=== PATIENT | female | born 1970 | race Caucasian/White ===

== ENCOUNTER 2019-01-16 18:43 | Emergency (ER) | payer OTHER ==
[2019-01-16] MEDS ORDERED: Ondansetron INJ* 2 MG/ML VIAL IV ONE (19:21)
[2019-01-16] MEDS ORDERED: NS 0.9% 1000 ML** 1,000 ML IV ONE (19:21)
[2019-01-16] MEDS ORDERED: Ketorolac INJ* 30 MG/ML 1 ML VIAL IV PUSH ONE (19:22)
--- NOTE | 2019-01-16 19:41 | ED ---
GI/ HPI - HPI Summary HPI Summary: 48-year-old female presents with dysuria for the past 3 days. States she was started on Keflex 2 days ago. She states that she was diagnosed with UTI 2 weeks ago and was on a course of Macrobid. Seemed to get better but then she felt the symptoms returned. She admits to flank pain and she's been having low- grade fevers. She denies nausea and vomiting. She states has suprapubic tenderness. States she hasn't had kidney infection since high school. Has a history of a rotator cuff injury. Denies any chest pain or shortness breath. No palpitations. No vaginal discharge. No diarrhea or constipation. She admits to hematuria. No history of kidney stones. - History of Current Complaint Chief Complaint: EDUrogenitalProblems Time Seen by Provider: 01/16/19 19:09 Stated Complaint: KIDNEY INFECTION PER PT Pain Intensity: 8 - Allergy/Home Medications Allergies/Adverse Reactions: Allergies Allergy/AdvReac Type Severity Reaction Status Date / Time contrast dye Allergy Nausea Uncoded 01/16/19 18:51 Home Medications: Home Medications Lisdexamfetamine Dimesylate [Vyvanse] 50 mg PO DAILY 01/16/19 [History Confirmed 01/16/19] PMH/Surg Hx/FS Hx/Imm Hx Endocrine/Hematology History: Denies: Hx Anticoagulant Therapy Respiratory History: Denies: Hx Asthma Infectious Disease History: No Infectious Disease History: Reports: Traveled Outside the [place] in Last 30 Days - Family History Known Family History: Positive: Non-Contributory - Social History Alcohol Use: Occasionally Substance Use Type: Reports: None Smoking Status (MU): Never Smoked Tobacco Review of Systems Positive: Fever Negative: Chest Pain Negative: Shortness Of Breath Positive: Abdominal Pain, Nausea. Negative: Vomiting Positive: dysuria, flank pain All Other Systems Reviewed And Are Negative: Yes Physical Exam Triage Information Reviewed: Yes Vital Signs On Initial Exam: Initial Vitals Temp Pulse Resp BP Pulse Ox 99.0 F 81 14 160/88 100 01/16/19 18:46 01/16/19 18:46 01/16/19 18:46 01/16/19 18:46 01/16/19 18:46 Vital Signs Reviewed: Yes Appearance: Positive: Well-Appearing Skin: Positive: Warm, Dry Head/Face: Positive: Normal Head/Face Inspection Eyes: Positive: Normal, Conjunctiva Clear ENT: Positive: Pharynx normal Respiratory/Lung Sounds: Positive: Clear to Auscultation, Breath Sounds Present Cardiovascular: Positive: Normal, RRR Abdomen Description: Positive: Soft, CVA Tenderness (R), CVA Tenderness (L), Other: - tenderness suprapubic Bowel Sounds: Positive: Present Musculoskeletal: Positive: Normal Neurological: Positive: Normal Psychiatric: Positive: Normal Diagnostics - Vital Signs Vital Signs Temp Pulse Resp BP Pulse Ox 01/16/19 18:46 99.0 F 81 14 160/88 100 - Laboratory Result Diagrams: 01/16/19 19:42 01/16/19 19:42 Lab Statement: Any lab studies that have been ordered have been reviewed, and results considered in the medical decision making process. - CT abd CT Interpretation Completed By: Radiologist Summary of CT Findings: IMPRESSION: 1. No CT findings to correlate with patient 's symptomatology. 2. Well-positioned IUD. Re-Evaluation - Re-Evaluation First Eval Re-Evaluation Time: 20:57 Change: Improved Comment: feeling better GIGU Course/Dx - Course Course Of Treatment: 48-year-old female presents with dysuria for the past 3 days. States she was started on Keflex 2 days ago. She states that she was diagnosed with UTI 2 weeks ago and was on a course of Macrobid. Seemed to get better but then she felt the symptoms returned. She admits to flank pain and she's been having low-grade fevers. She denies nausea and vomiting. She states has suprapubic tenderness. States she hasn't had kidney infection since high school. Has a history of a rotator cuff injury. Denies any chest pain or shortness breath. No palpitations. No vaginal discharge. No diarrhea or constipation. She admits to hematuria. No history of kidney stones. On exam tenderness greatest in the right flank. has suprapubic tenderness. Afebrile. wbc 11. crp normal. urine shows hematuria. CT shows no acute findings. with continuing symptoms on the Keflex will switch to Bactrim. We'll culture to make sure senstivity to bactrim. Told to follow up with urology back home. Patient is leaving tomorrow to go back to [place]. Will follow-up with primary back in [place]. Patient understands agrees with plan. - Diagnoses Differential Diagnoses - Female: Pyelonephritis, Urinary Tract Infection, Ureteral Calculi Provider Diagnoses: UTI (urinary tract infection), Flank pain Discharge - Sign-Out/Discharge Documenting (check all that apply): Patient Departure Patient Received Moderate/Deep Sedation with Procedure: No - Discharge Plan Condition: Good Disposition: HOME Prescriptions: Ondansetron ODT TAB* [Zofran 4 MG Odt TAB*] 4 mg PO Q6H PRN #16 tab.odt PRN Reason: Nausea Sulfamethox/Trimethoprim DS* [Bactrim DS 800/160 TAB*] 1 tab PO BID #12 tab Patient Education Materials: Urinary Tract Infection in Women (ED) Referrals: No Primary Care Phys,NOPCP [Primary Care Provider] - Additional Instructions: Take bactrim twice a day for 7 days take zofran every 6 hours as needed for nausea drink plenty of fluids take tyenlol or ibuprofen every 6 hours as needed for pain Follow up with primary within 5 days Return to ED if develop any new or worsening symptoms - Billing Disposition and Condition Condition: GOOD Disposition: Home
[2019-01-16 19:48] LABS: Urine Appearance Clear; Urine Bacteria Absent (Absent); Urine Bilirubin Negative (Negative); Urine Blood 1+ (Negative); Urine Color Yellow; Urine Glucose Negative (Negative); Urine Ketones Trace (Negative); Urine Nitrite Negative (Negative); Urine Protein Negative (Negative); Urine Red Blood Cell 3+(>10/hpf) (Absent); Urine Specific Gravity 1.015 (1.010-1.030); Urine Squamous Epithelial Cell Present (Absent); Urine Urobilinogen Negative (Negative); Urine White Blood Cell Trace(0-5/hpf) (Absent)
[2019-01-16 19:50] LABS: ABS Lymphocytes 1.4 10^3/ul (1.0-4.8); ABS Monocytes 1.3 10^3/ul (0-0.8); ABS Neutrophils 8.3 10^3/ul (1.5-7.7); Eosinophil % 0.3 %; Hematocrit 38 % (35-47); Hemoglobin 12.6 g/dL (12.0-16.0); Lymphocyte % 13.1 %; Mean Corpuscular HGB Conc 34 g/dL (31-36); Mean Corpuscular Hemoglobin 32 pg (27-31); Mean Corpuscular Volume 96 fL (80-97); Mean Platelet Volume 7.1 fL (7.4-10.4); Platelet Count 306 10^3/uL (150-450); Red Blood Count 3.94 10^6 /uL (3.70-4.87); Red Cell Distribution Width 14 % (10-15)
[2019-01-16 20:07] LABS: ALT 31 U/L (7-52); AST 28 U/L (13-39); Albumin/Globulin Ratio 1.2 (1-3); Alkaline Phosphatase 52 U/L (34-104); Anion Gap 6 mmol/L (2-11); BUN/Creatinine Ratio 13.7 (8-20); Blood Urea Nitrogen 10 mg/dL (6-24); C Reactive Protein 26.87 mg/L (<8.01); CO2 Carbon Dioxide 27 mmol/L (22-32); Calcium 8.9 mg/dL (8.6-10.3); Chloride 102 mmol/L (101-111); EGFR Non-African American 85.1 (>60); Globulin 3.3 g/dL (2-4); Glucose 93 mg/dL (70-100); Potassium 3.7 mmol/L (3.5-5.0); Sodium 135 mmol/L (135-145); Total Protein 7.3 g/dL (6.4-8.9)
[2019-01-16 20:13] LABS: HCG Pregnancy < 0.60 mIU/mL
[2019-01-16] MEDS ORDERED: Sulfamethox/Trimethoprim DS 800/160* TAB PO ONE ×2 (21:46)
== END 2019-01-16 21:56 | disposition home or self-care (01) ==
LOC: ED 18:43
DX: N39.0 Urinary tract infection, site not specified (principal); R10.84 Generalized abdominal pain; R50.9 Fever, unspecified; R11.0 Nausea
CPT/HCPCS: 36415; 74176; 80053; 81003; 81015; 83605; 83690; 84702; 85025; 86140; 87086; 96361; 96374; 96375; 99284; A9270-GY; J1885; J2405